=== PATIENT | male | born 1965 | race Caucasian/White ===

== ENCOUNTER 2017-06-12 05:19 | Day surgery (SDC) | payer MEDICAID ==
[2017-06-12] MEDS ORDERED: LIDOCAINE 1% 2 ML INJ ONE (05:50)
[2017-06-12 06:26] VITALS: PULSE 53
[2017-06-12] MEDS ORDERED: LIDOCAINE 1% 2 ML INJ ID PRN (06:27)
[2017-06-12] MEDS ORDERED: LR 1,000 ML IV ONE (06:27)
[2017-06-12] MEDS ORDERED: PROPOFOL 200 MG/20 ML VIAL ONE ×2 (07:27→07:42)
[2017-06-12] MEDS ORDERED: LIDOCAINE 2% 5 ML SDV ONE (07:27)
--- NOTE | 2017-06-12 07:28 | PDGENHP ---
History & Physical Chief Complaint: Surveillance colonoscopy History of Present Illness: Hx of colonoscopy 3 years ago and polyps were removed Relevant Physical Exam: GEN: NAD. Cardiac: RRR. Lungs: CTA B. Abd: Soft, NT, ND
--- NOTE | 2017-06-12 07:59 | POSTOPPROG ---
Post Op Note Date of Operation: 06/12/17 Surgeon: Mandeep Portillo Pre-op Diagnosis: surveillance colonoscopy Post-op Diagnosis: same Indication: hx of polyps Procedure: colonoscopy Findings: no polyps, small internal hemorrhoids Inf/Abcess present in the surg proc area at time of surgery?: No
[2017-06-12] MEDS ORDERED: ONDANSETRON 4 MG/2 ML VIAL IVP PRN (08:05)
[2017-06-12] MEDS ORDERED: fentaNYL 100 MCG/2 ML INJ IVP PRN (08:05)
[2017-06-12] MEDS ORDERED: LR 500 ML IV PRN (08:05)
[2017-06-12] MEDS ORDERED: NALOXONE HCL 0.4 MG/ML INJ IVP PRN (08:05)
--- NOTE | 2017-06-12 08:06 | PDANEPAE ---
ANE Past Medical History - Cardiovascular History Hx Hypertension: No Hx Arrhythmias: No Hx Chest Pain: No Hx Coronary Artery / Peripheral Vascular Disease: No Hx CHF / Valvular Disease: No Hx Palpitations: No - Pulmonary History Hx COPD: No Hx Asthma/Reactive Airway Disease: Yes Hx Recent Upper Respiratory Infection: No Hx Oxygen in Use at Home: No Hx Sleep Apnea: No Sleep Apnea Screening Result - Last Documented: Negative Pulmonary History Comment: "lungs fill w/fluid in [place]"- humidity? pollutants? pollen? CXR 11-14-16: airways disease. - Neurologic History Hx Cerebrovascular Accident: No Hx Seizures: No Hx Dementia: No - Endocrine History Hx Diabetes: No Hypothyroid: No Hyperthyroid: No Obesity: no - Renal History Hx Renal Disorders: No - Liver History Hx Hepatic Disorders: No - Neurological & Psychiatric Hx Hx Neurological and Psychiatric Disorders: No - Cancer History Hx Cancer: No - Congenital Disorder History Hx Congenital Disorders: No - GI History Hx Gastrointestinal Disorders: Yes Gastrointestinal History Comment: pre cancerous polyp 3 yrs ago - Other Health History Other Health History: "reactive to direct/indirect sunlight" -blistering. Photochemical sensitivity -carotene helps w/symptoms. sensitive to chemicals, dust mold, pollen. Rash from sugar. - Chronic Pain History Chronic Pain: No - Surgical History Prior Surgeries: hand surgery - removed scar tissue. ANE Review of Systems Review of systems is: negative - Exercise capacity METS (RN): 5 METS ANE Patient History - Allergies Allergies/Adverse Reactions: Penicillins Allergy (Verified 05/23/17 15:30) Rash - Home Medications Home Medications: Carotene 05/23/17 [Last Taken Unknown] Proair Hfa 05/23/17 [Last Taken 06/12/17 05:00] - NPO status NPO Since - Liquids (Date): 06/11/17 NPO Since - Liquids (Time): 21:00 NPO Since - Solids (Date): 06/11/17 NPO Since - Solids (Time): 09:00 - Smoking Hx Smoking Status: Never smoked ANE Labs/Vital Signs - Vital Signs Blood Pressure: 139/77 Heart Rate: 53 Respiratory Rate: 14 O2 Sat (%): 100 Height: 170.18 cm Weight: 65.771 kg ANE Physical Exam - Airway Neck exam: FROM Mallampati Score: Class 1 Mouth exam: normal dental/mouth exam - Pulmonary Pulmonary: no respiratory distress - Cardiovascular Cardiovascular: regular rate and rhythym - ASA Status ASA Status: II ANE Anesthesia Plan Anesthesia Plan: GA with mask Urgent/Emergent Case: Anes eval completed preop but documented later for safe timely pt care
--- NOTE | 2017-06-12 08:07 | POSTANESTH ---
Post Anesthetic Evaluation Cardiovascular Status: Normal, Stable Respiratory Status: Normal, Stable Level of Consciousness/Mental Status: Can Participate in Eval, Mildly Sleepy, Arousable Pain Control: Adequate, Prn Tx Ordered Nausea/Vomiting Control: Adequate, Prn Tx Ordered Complications Possibly Related to Anesthesia: None Noted
[2017-06-12 08:18] VITALS: BP 145/81; RESP 27; O2SAT 98
[2017-06-12 09:13] VITALS: TEMP 97.7
--- NOTE | 2017-06-12 18:17 | GPN ---
[f rep st] PROCEDURE NOTE DATE OF PROCEDURE: 06/12/2017 REPORT TITLE: Procedure Note PREPROCEDURE DIAGNOSIS: Personal history of colon polyps. His last colonoscopy was 3 years ago. POSTPROCEDURE DIAGNOSIS: Small internal hemorrhoids. Otherwise, normal colonoscopy. PROCEDURE: Colonoscopy. MEDICATIONS: Monitored anesthesia care. INDICATIONS: The patient is a 51-year-old gentleman who had colonoscopy at age 48, who had multiple colon polyps, and it was recommended that he have repeat colonoscopy in 3 years. He is here for [facility] colonoscopy for history of polyps. The risks and benefits of the procedure discussed wit h the patient. Consent obtained. Risks include, but not limited to, bleeding, perforation, and sli ght sedation. The patient is ASA Class 1. DESCRIPTION OF PROCEDURE: The adult colonoscope was advanced into the terminal ileum, which appears normal. The ileocecal valve, appendiceal orifice, cecum, ascending colon, hepatic flexure, transve rse colon, splenic flexure, descending colon, sigmoid colon appeared normal. The rectum was normal, including retroflexed views other than grade 1 internal hemorrhoids. IMPRESSION: Grade 1 internal hemorrhoids. Otherwise, normal colonoscopy. RECOMMENDATION: 1. Discharge to home with escort. 2. Advance diet as tolerated. 3. Repeat surveillance colonoscopy in 5 years given history of polyps. Thank you for allowing me to participate in the care of your patient. Please do not hesitate to lucie almanza with questions. /[id number]/MODL
== END 2017-06-12 10:30 | disposition home or self-care (01) ==
LOC: FSGY 05:19
PROVIDERS: ATTEND Internal Medicine Gastroenterology
PROC: 0DJD8ZZ Inspection of Lower Intestinal Tract, Via Natural or Artificial Opening Endoscopic (ICD-10-PCS; principal; 2017-06-12 07:30)
DX: Z12.11 Encounter for screening for malignant neoplasm of colon (principal); K64.8 Other hemorrhoids; Z86.010 Personal history of colon polyps
CPT/HCPCS: J2704